=== PATIENT | male | born 1970 | race Caucasian/White ===

== ENCOUNTER → 2021-01-15 | Day surgery (SDC) | payer OTHER ==
[~2021-01-15] MED LIST: AMLODIPINE PO; Atorvastatin Calcium PO; LEXAPRO 10MG TA10 MG PO; NORCO 5-325 TA1 EACH PO; PREVACID30 M1 PO
[2021-01-15 08:13] LABS: BILIRUBIN - TOTAL 0.4 mg/dL (0.2-1.0); BUN/CREAT RATIO (CALC) 18.4 RATIO; CREATININE 0.76 mg/dL (0.67-1.17); GLOBULIN (CALCULATION) 3.6 g/dL; POTASSIUM 3.5 mmol/L (3.5-5.1); TOTAL PROTEIN 7.6 g/dL (6.4-8.2)
[2021-01-15 08:15] LABS: HGB 17.3 g/dl (13.2-18.0); MCH 32.8 pg (25.0-31.0); MCHC 33.9 g/dL (32.0-36.0); MPV 11.6 fL (6.0-9.5); RBC 5.27 M/uL (4.70-6.00); WBC 8.4 K/uL (4.0-10.5)
[2021-01-15 08:19] LABS: HCT 51.1 % (42.0-52.0)
== END | disposition home or self-care (01) ==
LOC: FAS 06:47
PROVIDERS: Surgery
DX: D12.3 Benign neoplasm of transverse colon (principal); K64.1 Second degree hemorrhoids; F17.210 Nicotine dependence, cigarettes, uncomplicated; I10 Essential (primary) hypertension; E78.00 Pure hypercholesterolemia, unspecified; Z79.899 Other long term (current) drug therapy; Z86.59 Personal history of other mental and behavioral disorders; Z86.16 Personal history of COVID-19
CPT/HCPCS: 36415; 80053; J1100; J1610; J2250; J2704; J7120